=== PATIENT | male | born 2000 | race Two or more races ===

== ENCOUNTER 2021-02-22 22:24 | Emergency (ER) | payer OTHER, SELFPAY ==
[2021-02-22 22:45] VITALS: BP 112/70; PULSE 79; RESP 16; TEMP 37.2; O2SAT 100; BMI 25.2
[2021-02-22 23:08] LABS: COVID-19 Test Positive (Negative)
--- NOTE | 2021-02-23 02:25 | ED.URI ---
HPI - URI/Sore Throat General Chief Complaint: Upper Respiratory Symptoms <Carolina Wylie NP - Last Filed: 02/23/21 02:29> Stated Complaint: sore throat body aches <Carolina Wylie NP - Last Filed: 02/23/21 02:29> Time Seen by Provider: 02/23/21 02:25 <Carolina Wylie NP - Last Filed: 02/23/21 02:29> Source: patient <Carolina Wylie NP - Last Filed: 02/23/21 02:29> Mode of arrival: ambulatory <Carolina Wylie NP - Last Filed: 02/23/21 02:29> Limitations: no limitations <Carolina Wylie NP - Last Filed: 02/23/21 02:29> History of Present Illness HPI Narrative: 20-year-old male presents with upper respiratory symptoms. Requesting COVID-19 testing. <Carolina Wylie NP - Last Filed: 02/23/21 02:29> MD elicited complaint: fever, cough, sore throat, rhinorrhea and nasal congestion <Carolina Wylie [employer] - Last Filed: 02/23/21 02:29> Onset (ago): day(s) <Carolina Wylie NP - Last Filed: 02/23/21 02:29> Consistency: constant <Carolina Wylie NP - Last Filed: 02/23/21 02:29> Severity: mild <Carolina Wylie NP - Last Filed: 02/23/21 02:29> Description of mucous: clear <Carolina Wylie NP - Last Filed: 02/23/21 02:29> Able to tolerate fluids by mouth: Yes <Carolina Wylie NP - Last Filed: 02/23/21 02:29> Exacerbating factors: nothing <Carolina Wylie NP - Last Filed: 02/23/21 02:29> Relieving factors: nothing <Carolina Wylie NP - Last Filed: 02/23/21 02:29> Context: sick contacts <Carolina Wylie NP - Last Filed: 02/23/21 02:29> Associated symptoms: fever, chills, myalgias, headache, nasal congestion, sore throat and cough <Carolina Wylie NP - Last Filed: 02/23/21 02:29> Treatments prior to arrival: none <Carolina Wylie NP - Last Filed: 02/23/21 02:29> Related Data Allergies/Adverse Reactions: Allergies Allergy/AdvReac Type Severity Reaction Status Date / Time No Known Allergies Allergy Verified 02/22/21 22:45 <Carolina Wylie NP - Last Filed: 02/23/21 02:29> Review of Systems Review of Systems: Constitutional: positive Fever, positive Chills, positive fatigue, positive Malaise ENT/Mouth: positive sore throat, positive runny nose Eyes: No Discharge Cardiovascular: No Chest Pain, No SOB Respiratory: Positive Cough, No Sputum, No Wheezing, No Smoke Exposure, No Dyspnea Gastrointestinal: No Nausea, No Vomiting, No Diarrhea Genitourinary: no irregular bleeding, No Dysuria, No Urinary Frequency, No Hematuria, No Urinary Incontinence, No Urgency, No Flank Pain, Musculoskeletal: positive Myalgia Skin: No rash Neuro: Positive Headache <Carolina Wylie NP - Last Filed: 02/23/21 02:29> Yes all other systems are reviewed and are negative <Carolina Wylie NP - Last Filed: 02/23/21 02:29> [facility] Past Medical History Attestation statement: The following information was validated with the patient. <Carolina Wylie NP - Last Filed: 02/23/21 02:29> Source: old records reviewed <Carolina Wylie NP - Last Filed: 02/23/21 02:29> Social History Social History: Social History Advance Directives: No Advance Directives Information Provided: Yes <Carolina Wylie NP - Last Filed: 02/23/21 02:29> Physical Exam Vital Signs: Vital Signs: Last Vital Signs Temp 98.9 F 02/22/21 22:45 Pulse 79 02/22/21 22:45 Resp 16 02/22/21 22:45 BP 112/70 02/22/21 22:45 Pulse Ox 100 02/22/21 22:45 BMI result Body Mass Index 25.2 <Carolina Wylie NP - Last Filed: 02/23/21 02:29> Vital Signs: Last Vital Signs Temp 98.9 F 02/22/21 22:45 Pulse 79 02/22/21 22:45 Resp 16 02/22/21 22:45 BP 112/70 02/22/21 22:45 Pulse Ox 100 02/22/21 22:45 BMI result Body Mass Index 25.2 <Bayron Loera MD - Last Filed: 02/23/21 07:01> Appearance: Alert. Oriented X3. No acute distress. Eyes: Pupils equal, round and reactive to light. ENT: Pharynx normal. Neck: Normal inspection. Neck supple. CVS: Normal heart rate and rhythm. Pulses normal. Respiratory: No respiratory distress. Breath sounds normal. Abdomen: Soft and nontender. Skin: Skin warm and dry. Normal skin color. Normal skin turgor. Extremities: No lower extremity edema. Gait well-balanced well coordinated. Neuro: No motor deficit. No sensory deficit. Cranial nerves 2-12 intact. <Carolina Wylie NP - Last Filed: 02/23/21 02:29> Course Course Course Narrative: 20-year-old male presents with upper respiratory symptoms consistent with COVID-19, requesting COVID-19 testing. Was tested earlier today but did not receive results. Would like repeat testing at this time. Patient is afebrile, even unlabored respirations, O2 sat 100% on room air. Appears nontoxic. 2:27 a.m. COVID test is positive. Patient verbalized understanding of and agrees to plan of care discharge home. <Caroilna Wylie NP - Last Filed: 02/23/21 02:29> MDM - URI/Sore Throat Differential Diagnosis Differential diagnosis: Likely upper respiratory infection, viral infection, bronchitis, influenza and pharyngitis <Carolina Wylie NP - Last Filed: 02/23/21 02:29> Medical Records Attestation: I reviewed the patient's medical records. <Carolina Wylie NP - Last Filed: 02/23/21 02:29> Lab Data Attestation: I reviewed the patient's lab results. <Carolina Wylie NP - Last Filed: 02/23/21 02:29> Labs: Lab Results 02/22/21 Range/Units 22:33 COVID-19 ([place]) Positive A (Negative) COVID-19 Clin Com See Note <Carolina Wylie NP - Last Filed: 02/23/21 02:29> Lab Results 02/22/21 Range/Units 22:33 COVID-19 ([place]) Positive A (Negative) COVID-19 Clin Com See Note <Bayron Loear MD - Last Filed: 02/23/21 07:01> Discharge Plan Discharge Clinical Impression: COVID-19 <Carolina Wylie NP - Last Filed: 02/23/21 02:29> Patient Disposition: Home, Self-Care <Carolina Wylie NP - Last Filed: 02/23/21 02:29> Instructions: Covid-19 Viral Syndrome and Novel Coronavirus (ED) Hey[facility], COVID-19 (Coronavirus Disease 2019) (ED) <Carolina Wylie NP - Last Filed: 02/23/21 02:29> Additional Instructions: You tested positive for COVID-19. Please maintain social isolation for State and Federal guidelines. Alternate Tylenol 650 mg every 6 hours and Motrin 600 mg every 6 hours as needed for fever control and muscle aches. Drink plenty of fluids. If symptoms worsen please follow-up with primary care physician or emergency department for further evaluation. Thank you for choosing this emergency department for evaluation. Please follow-up with primary care physician as needed. Return to the emergency department for any new, concerning, or worsening symptoms. <Carolina Wylie NP - Last Filed: 02/23/21 02:29> Stand Alone Forms: Work/School Release <Carolina Wylie NP - Last Filed: 02/23/21 02:29> Interventions: ED Discharge Assessment Last Done: 02/23/21 02:39 <Carolina Wylie NP - Last Filed: 02/23/21 02:29> Discharge Date/Time: 02/23/21 02:40 <Carolina Wylie NP - Last Filed: 02/23/21 02:29>
== END 2021-02-23 02:40 | disposition home or self-care (01) ==
PROVIDERS: Emergency Provider Emergency Medicine
DX: U07.1 COVID-19 (principal); J02.9 Acute pharyngitis, unspecified; M79.10 Myalgia, unspecified site; R51.9 Headache, unspecified; R50.9 Fever, unspecified
CPT/HCPCS: 36415; 87635; 99283